=== PATIENT | male | born 1940 | race Caucasian/White ===

== ENCOUNTER → 2018-06-19 | Outpatient (CLI) | payer MEDICARE, BC | LOC: M.MRI 07:57 | DX: I69.898 Other sequelae of other cerebrovascular disease (principal); G31.9 Degenerative disease of nervous system, unspecified ==

== ENCOUNTER → 2018-06-25 | Outpatient (CLI) | payer MEDICARE, BC | LOC: M.ULTRA 07:44 | DX: G45.9 Transient cerebral ischemic attack, unspecified (principal); I69.898 Other sequelae of other cerebrovascular disease ==